=== PATIENT | female | born 1960 | race Caucasian/White ===

== ENCOUNTER 2021-10-04 08:50 | Outpatient (CLI) | payer BC | END 2021-10-04 08:51 | disposition home or self-care (01) | LOC: CSHMRI 08:50 | PROVIDERS: ATTEND Neurological Surgery | DX: M54.16 Radiculopathy, lumbar region (principal); R51.9 Headache, unspecified; G96.00 Cerebrospinal fluid leak, unspecified; Z98.890 Other specified postprocedural states; I67.9 Cerebrovascular disease, unspecified | CPT/HCPCS: 70551; 72158; 82565 ==

== ENCOUNTER 2023-12-20 12:17 | Outpatient (CLI) | payer BC | END 2023-12-20 12:18 | disposition home or self-care (01) | LOC: CSHRAD 12:17 | PROVIDERS: ATTEND Orthopaedic Surgery | DX: M54.50 Low back pain, unspecified (principal); Z98.890 Other specified postprocedural states; M47.816 Spondylosis without myelopathy or radiculopathy, lumbar region | CPT/HCPCS: 72100; 72170 ==